=== PATIENT | female | born 1980 | race Caucasian/White ===

== ENCOUNTER 2019-12-22 22:09 | Observation (INO) | payer SELFPAY ==
[2019-12-22] MEDS ORDERED: GLUCAGON,HUMAN RECOMB 1 MG INJ IV ONE (22:31)
--- NOTE | 2019-12-22 22:49 | ER Document Report ---
ED Foreign Body - General Chief Complaint: Foreign Body Stated Complaint: FOREIGN BODY IN THROAT Time Seen by Provider: 12/22/19 22:26 Notes: Patient is a 39-year-old female that comes emergency department for chief complaint of steak stuck in her throat. She states that just prior to arrival she felt the steak got lodged and she has been unable to swallow since that time. She has been spitting up mainly saliva, she has not had any vomiting, stomach acid, or food particles brought up. She states that she intermittently gets food stuck but she has never required endoscopy or removal of impaction. She has never had a dilation. She denies difficulty breathing or any other complaints. Past medical history of eczema, asthma, hysterectomy. TRAVEL OUTSIDE OF THE [place] IN LAST 30 DAYS: No - Related Data Allergies/Adverse Reactions: egg [Egg] Allergy (Severe, Verified 12/22/19 22:13) Anaphylaxis peanut [Peanut] Allergy (Severe, Verified 12/22/19 22:13) Anaphylaxis haloperidol [From Haldol] Allergy (Unknown, Verified 12/22/19 22:13) haloperidol lactate [From Haldol] Allergy (Unknown, Verified 12/22/19 22:13) nuts Allergy (Severe, Uncoded 08/01/14 07:47) Anaphylaxis Home Medications: addrerax. duplixant Past Medical History - General Information source: Patient - Social History Smoking Status: Never Smoker Chew tobacco use (# tins/day): No Frequency of alcohol use: None Drug Abuse: None Lives with: Family Family History: Reviewed & Not Pertinent Patient has homicidal ideation: No Pulmonary Medical History: Reports: Hx Asthma Psychiatric Medical History: Reports: Hx Depression Past Surgical History: Reports: Hx Section - Immunizations Hx Diphtheria, Pertussis, Tetanus Vaccination: Yes Hx Pneumococcal Vaccination: 02/27/11 Review of Systems - Review of Systems Constitutional: No symptoms reported EENT: See HPI Cardiovascular: No symptoms reported Respiratory: No symptoms reported Gastrointestinal: See HPI Genitourinary: No symptoms reported Female Genitourinary: No symptoms reported Musculoskeletal: No symptoms reported Skin: No symptoms reported Hematologic/Lymphatic: No symptoms reported Neurological/Psychological: No symptoms reported Physical Exam - Vital signs Vitals: Temp 98.4 F 12/22/19 22:14 - Notes Notes: GENERAL: Patient uncomfortable in appearance, spitting secretions into an emesis bag. However she does not appear to be in severe distress. HEAD: Normocephalic, atraumatic. EYES: Pupils equal, round, and reactive to light. Extraocular movements intact. ENT: Oral mucosa moist, tongue midline. Oropharynx unremarkable. Airway patent. NECK: Full range of motion. Supple. Trachea midline. No lymphadenopathy. LUNGS: Clear to auscultation bilaterally, no wheezes, rales, or rhonchi. No respiratory distress. Non-tender chest wall. HEART: Regular rate and rhythm. No murmur ABDOMEN: Soft, non-tender. Non-distended. Bowel sounds present in all 4 quadrants. EXTREMITIES: Moves all 4 extremities spontaneously. No edema, normal radial and dorsalis pedis pulses bilaterally. No cyanosis. BACK: no cervical, thoracic, lumbar midline tenderness. No saddle anesthesia, normal distal neurovascular exam. NEUROLOGICAL: Alert and oriented x3. Normal speech. SKIN: Warm, dry, normal turgor. No rashes or lesions noted. Course - Re-evaluation Re-evalutation: 12/22/19 23:27 There was some delay in care because patient is very difficult to get IV access for. After multiple attempts I did go in the room, after second attempt I was able to place 20-gauge in the left arm above the AC. After this patient was given glucagon. On reevaluation this is not appear to have had any effect, patient is still completely obstructed, spitting, and when she drinks water water and saliva came out with no stomach contents or food particles. Discussed with Dr. Stoner. I called and spoke with Dr. Metcalf, general surgeon, he states he will come evaluate the patient for potential endoscopy and retrieval of obstructing foreign body. Patient states understanding and agreement. - Vital Signs Vital signs: Temp Pulse Resp BP Pulse Ox 98.4 F 93 19 155/96 H 99 12/22/19 22:21 12/22/19 22:21 12/23/19 00:01 12/23/19 00:01 12/23/19 00:01 Discharge - Discharge Clinical Impression: Food impaction of esophagus Qualifiers: Encounter type: initial encounter Qualified Code(s): T18.128A - Food in esophagus causing other injury, initial encounter Condition: Stable Disposition: ADMITTED OBSERVATION Admitting Provider: Surgicalist Unit Admitted: Surgical Floor
[2019-12-22] MEDS ORDERED: NORMAL SALINE 1000 ML 1,000 ML IV PRN (23:09)
[2019-12-22] MEDS ORDERED: DEXTROSE 5%-LACTATED RINGERS 1,000 ML IV PRN (23:20)
[2019-12-22] MEDS ORDERED: ONDANSETRON HCL INJ/PF 4 MG/2 ML SDV IV PRN (23:20)
[2019-12-23] MEDS ORDERED: MORPHINE SULFATE 10 MG/ML INJ IV PRN (02:25)
[2019-12-23] MEDS ORDERED: MIDAZOLAM 2 MG/2 ML INJ ONE (08:07)
[2019-12-23] MEDS ORDERED: ONDANSETRON HCL INJ/PF 4 MG/2 ML SDV ONE (08:07)
[2019-12-23] MEDS ORDERED: PROPOFOL INJ 200 MG/20 ML VIAL IV ONE (08:07)
[2019-12-23] MEDS ORDERED: FENTANYL CITRATE INJ/PF 100 MCG/2 ML AMPUL ONE (08:07)
[2019-12-23] MEDS ORDERED: DEXAMETHASONE SOD PHOSPHATE INJ 4 MG/1 ML VIAL ONE (08:07)
--- NOTE | 2019-12-23 08:23 | PDOC H&P ---
History of Present Illness Admission Date/PCP: 12/23/19 00:00 Patient complains of: lodged food bolus within the esophagus. Inability to swallow. History of Present Illness: JONATHAN DOMINIQUEPARD is a 39 year old female with no significant reported past medical history. She was eating steak earlier today, and felt the food bolus become lodged in her esophagus. Afterwards, she had difficulty swallowing and managing her secretions. Patient does report some chest discomfort, but denies overt chest pain. She denies shortness of breath, fevers, chills, nausea, vomiting, melena, hematochezia, history of alcohol abuse, dizziness, orthostasis, hematemesis, headache, blurry vision, hemoptysis. The patient has experienced similar symptoms before, however they always subside after a period of time. Her symptoms have not subsided, even after the administration of glucagon. The patient has never been evaluated for this problem. She is never seen a court deputy. She has never had an EGD. Past Medical History Pulmonary Medical History: Reports: Asthma Psychiatric Medical History: Reports: Depression Hematology: Reports: Anemia Past Surgical History Past Surgical History: Reports: Section Social History Lives with: Family Smoking Status: Never Smoker Electronic Cigarette use?: No Frequency of Alcohol Use: None Hx Recreational Drug Use: No Hx Prescription Drug Abuse: No - Advance Directive Resuscitation Status: Full Code Family History Family History: Reviewed & Not Pertinent Parental Family History Reviewed: Yes Children Family History Reviewed: Yes Sibling(s) Family History Reviewed.: Yes Medication/Allergy Home Medications: Hydroxyzine HCl [Atarax 10 mg Tablet] 10 mg PO BID 08/01/14 Albuterol Sulfate [Proair HFA Inhalation Aerosol 8.5 gm MDI] 2 puff IH Q6 #1 [email or web address] 08/04/14 Ipratropium/Albuterol Sulfate [Duoneb 3 ml Ampul] 3 ml NEB RTQ6 #30 [email or web address] 08/04/14 Lansoprazole [Prevacid 30 mg Odt Tablet] 30 mg PO [id number] #30 tab.rap. 08/04/14 Levofloxacin [Levaquin 750 mg Tablet] 750 mg PO DAILY #7 tablet 08/04/14 Medroxyprogesterone Acet [Provera 10 mg Tablet] 10 mg PO TID #30 tablet 08/04/14 Ferrous Sulfate [Feosol] 325 mg PO DAILY #30 tablet 09/11/14 Albuterol Sulfate [Albuterol Sulfate 5mg/1 mL] 5 mg NEB Q4 PRN #30 ml 08/01/16 Albuterol Sulfate [Proair HFA Inhalation Aerosol 8.5 gm MDI] 2 puff IH Q4H PRN #1 mdi 08/01/16 Ipratropium/Albuterol Sulfate [Duoneb 3 ml Ampul] 3 ml NEB RTQ3HP PRN #90 ml 08/01/16 Prednisone [Deltasone 20 mg Tablet] 3 tab PO DAILY 5 Days tablet 08/01/16 Allergies/Adverse Reactions: egg [Egg] Allergy (Severe, Verified 12/22/19 22:13) Anaphylaxis peanut [Peanut] Allergy (Severe, Verified 12/22/19 22:13) Anaphylaxis haloperidol [From Haldol] Allergy (Unknown, Verified 12/22/19 22:13) haloperidol lactate [From Haldol] Allergy (Unknown, Verified 12/22/19 22:13) nuts Allergy (Severe, Uncoded 08/01/14 07:47) Anaphylaxis Review of Systems Constitutional: ABSENT: anorexia, chills, fatigue Eyes: ABSENT: visual disturbances Ears: ABSENT: hearing changes Nose, Mouth, and Throat: ABSENT: sore throat Cardiovascular: ABSENT: chest pain Respiratory: ABSENT: cough, dyspnea Gastrointestinal: PRESENT: dysphagia. ABSENT: abdominal pain, bloating, melena, nausea, vomiting Genitourinary: ABSENT: dysuria Musculoskeletal: ABSENT: back pain Integumentary: ABSENT: pruritus, rash Neurological: ABSENT: abnormal gait, confusion, convulsions, dizziness Psychiatric: ABSENT: anxiety, depression Endocrine: ABSENT: cold intolerance Physical Exam Vital Signs: Temp Pulse Resp BP Pulse Ox 97.4 F 70 18 146/97 H 100 12/23/19 07:58 12/23/19 07:58 12/23/19 07:58 12/23/19 07:58 12/23/19 07:58 Intake & Output 12/22/19 12/23/19 12/24/19 06:59 06:59 06:59 Intake Total 250 Balance 250 Weight 108.3 kg General appearance: PRESENT: no acute distress, cooperative Head exam: PRESENT: atraumatic, normocephalic Eye exam: PRESENT: EOMI, PERRLA. ABSENT: scleral icterus Mouth exam: PRESENT: moist, neck supple Neck exam: ABSENT: thyromegaly, tracheal deviation, tracheostomy Respiratory exam: PRESENT: unlabored. ABSENT: tachypnea, wheezes Cardiovascular exam: ABSENT: tachycardia Pulses: PRESENT: normal radial pulses Vascular exam: PRESENT: normal capillary refill. ABSENT: pallor GI/Abdominal exam: PRESENT: soft. ABSENT: distended, tenderness Rectal exam: PRESENT: deferred Extremities exam: ABSENT: clubbing Musculoskeletal exam: ABSENT: deformity Neurological exam: PRESENT: alert, awake, oriented to person, oriented to place, oriented to time, oriented to situation Psychiatric exam: ABSENT: agitated, anxious, depressed Focused psych exam: ABSENT: delusional Skin exam: ABSENT: cyanosis, erythema, jaundice Assessment & Plan - Diagnosis (1) Food impaction of esophagus Qualifiers: Encounter type: initial encounter Qualified Code(s): T18.128A - Food in esophagus causing other injury, initial encounter Is this a current diagnosis for this admission?: Yes - Plan Summary Plan Summary: This is a 39-year-old female with a lodged food bolus within the esophagus. She has difficulty managing her secretions. I have recommended EGD with extraction of the food bolus. The patient has agreed to this. Risks/benefits discussed, informed consent obtained, and all questions answered.
--- NOTE | 2019-12-23 09:25 | Operative Report ---
Nonrecallable Operative Report DATE OF SURGERY: 12/23/19 PREOPERATIVE DIAGNOSIS: Esophageal food bolus POSTOPERATIVE DIAGNOSIS: 1. Food bolus, lodged in the cervical esophagus. 2. No significant evidence for esophageal stricture OPERATION: EGD with extraction of cervical esophageal food bolus SURGEON: KEV VILLANUEVA ANESTHESIA: GA TISSUE REMOVED OR ALTERED: Food bolus COMPLICATIONS: None apparent ESTIMATED BLOOD LOSS: None PROCEDURE: Procedure in detail: After informed consent was obtained, the patient was br ought into the operating room and general endotracheal intubation was performed. Next, the flexible gastroscope was inserted into the oropharynx, below the piriform sinus, and into the cervical esophagus. There was a large food bolus lodged within the cervical esophagus. The food bolus was extracted in piecemeal fashion using Heysanmbo biopsy forceps as well as the rubens grasper. Once the food bolus was broken free, a portion of it was extracted orally. The remaining portion was pushed down into the stomach. The stomach and esophagus were then fully inspected. There is no evidence of damage to the stomach or esophagus. Specifically there was no evidence of mucosal damage or perforation. There was no evidence of esophageal stricture or web. Once this was confirmed, the scope was removed, and the procedure was concluded. All sponge, instrument, and needle counts were correct. Condition: Stable.
[2019-12-23] MEDS ORDERED: SUCCINYLCHOLINE CHLORIDE INJ 200 MG/10 ML VIAL ONE (09:50)
--- NOTE | 2019-12-23 10:35 | PDOC DISCHARGE SUMMARY ---
General - Admit/Disc Date/PCP Admission Date/Primary Care Provider: 12/23/19 00:00 Discharge Date: 12/23/19 - Discharge Diagnosis Final Diagnosis: Esophageal food bolus, lodged - Assessment Summary: This is a 39-year-old female who was eating steak last night. After swallowing, she felt a bolus of food become lodged in her upper esophagus. The patient then presented to the emergency department for evaluation. Glucagon was not helpful. The patient was then admitted, and taken to the operating room for extraction of the food bolus. This was successful. She was then taken to the floor in stable condition. Patient was able to swallow and manage her own secretions. At this time it is felt that she has reached maximal hospital benefit, and is fit for discharge. - Additional Information Resuscitation Status: Full Code Discharge Diet: Other (Comments) - Soft mechanical diet Discharge Activity: Activity As Tolerated Additional Information: Discharge home. Diet: Soft mechanical. Activity: As tolerated. Follow-up with [facility] on a as needed basis. History of Present Illiness History of Present Illness: JONATHAN PEDRAZA is a 39 year old female with no significant reported past medical history. She was eating steak earlier today, and felt the food bolus become lodged in her esophagus. Afterwards, she had difficulty swallowing and managing her secretions. Patient does report some chest discomfort, but denies overt chest pain. She denies shortness of breath, fevers, chills, nausea, vomiting, melena, hematochezia, history of alcohol abuse, dizziness, orthostasis, hematemesis, headache, blurry vision, hemoptysis. The patient has experienced similar symptoms before, however they always subside after a period of time. Her symptoms have not subsided, even after the administration of glucagon. The patient has never been evaluated for this problem. She has never seen a department store manager. She has never had an EGD. Physical Exam Vital Signs: Temp Pulse Resp BP Pulse Ox 97.8 F 62 17 148/84 H 92 12/23/19 10:04 12/23/19 10:04 12/23/19 10:04 12/23/19 10:12/23/19 10:04 Intake & Output 12/22/19 12/23/19 12/24/19 06:59 06:59 06:59 Intake Total 250 850 Output Total 0 Balance 250 850 Weight 108.3 kg
[2019-12-23 12:53] VITALS: BP 144/80
== END 2019-12-23 12:30 | disposition home or self-care (01) ==
LOC: ER 22:09 → EH 12-23 → 4S 12-23 01:11
PROVIDERS: ATTEND Surgery
DX: T18.128A Food in esophagus causing other injury, initial encounter (principal); X58.XXXA Exposure to other specified factors, initial encounter; J45.909 Unspecified asthma, uncomplicated; Z79.899 Other long term (current) drug therapy
CPT/HCPCS: 99284; 96374; 43247; J2250; J1100; J3010; J1610; J2270; J0330; J2405; J7121; J7030; J2704; 731; 99140